=== PATIENT | female | born 1995 | race Caucasian/White ===

== ENCOUNTER 2021-07-27 16:37 | Emergency (ER) | payer OTHER ==
[2021-07-27] MEDS ORDERED: ACETAMINOPHEN 325 MG TAB PO ONE (17:54)
--- NOTE | 2021-07-27 17:55 | Emergency Department Report ---
ED HPI - General Chief complaint: Vaginal Bleeding Stated complaint: VAGINAL BLEEDING Time Seen by Provider: 07/27/21 17:08 Source: EMS Mode of arrival: Stretcher Limitations: Language Barrier - History of Present Illness Initial comments: 25 year female who is currently about 5 weeks based on her LMC which was 06/19/2021 presents to ED with complaints of vag bleeding. Onset 2hrs ago. She states bleeding is heaving than her normal MC. She has used 2 large pads so far. She also reports that she feels something large passed through the vagina while she was urinating in the ER. She states that she did not have a chance to look at it because of automatic flush. She states that when the pain initially started she did not have any abdominal pain/cramping, but since has been in the ER she started to have some mild lower abdominal cramping. She is Ab0. She does not currently have an [facility]. MD Complaint: vaginal bleeding -: hour(s) (2) - Related Data Allergies Allergy/AdvReac Type Severity Reaction Status Date / Time No Known Allergies Allergy Verified 07/27/21 16:40 ED Review of Systems ROS: Stated complaint: VAGINAL BLEEDING Other details as noted in HPI Comment: All other systems reviewed and negative Constitutional: denies: chills, fever Eyes: denies: eye pain, eye discharge, vision change ENT: denies: ear pain, throat pain Gastrointestinal: abdominal pain. denies: nausea, vomiting, diarrhea, constipation, hematemesis, melena, hematochezia Genitourinary: other (+; abnormal vag bleeding). denies: urgency, dysuria, frequency, hematuria, discharge, abnormal menses, dyspareunia Musculoskeletal: denies: back pain, joint swelling, arthralgia Skin: denies: rash, lesions, change in color, change in hair/nails, pruritus Neurological: denies: headache, weakness, numbness, paresthesias, confusion, abnormal gait, vertigo Psychiatric: denies: anxiety, depression, auditory hallucinations, visual hallucinations, homicidal thoughts, suicidal thoughts Hematological/Lymphatic: denies: easy bleeding, easy bruising, swollen glands ED Physical Exam - General Limitations: Language Barrier General appearance: alert, in no apparent distress - Neck Neck exam: Present: normal inspection, full ROM. Absent: meningismus - Respiratory Respiratory exam: Present: normal lung sounds bilaterally. Absent: respiratory distress, wheezes, rales, rhonchi - Cardiovascular Cardiovascular Exam: Present: regular rate - GI/Abdominal GI/Abdominal exam: Present: soft, tenderness (Mild ttp right LQ and suprapubic area without guarding ). Absent: distended, guarding, rebound, rigid - Neurological Exam Neurological exam: Present: alert, oriented X3, CN II-XII intact, normal gait - Psychiatric Psychiatric exam: Present: normal affect, normal mood - Skin Skin exam: Present: intact ED Course Vital Signs 07/27/21 16:37 Temperature 98 F Pulse Rate 71 Respiratory 18 Rate Blood Pressure 104/64 [Left] O2 Sat by Pulse 100 Oximetry ED Medical Decision Making - Lab Data Result diagrams: 07/27/21 18:02 07/27/21 18:02 - Radiology Data Radiology results: report reviewed Patient: KEARA SANTIAGO MR#: [id number] 60 : 1995 Acct:[id number] Age/Sex: 25 / F ADM Date: 07/27/21 Loc: ED Attending Dr: Ordering Physician: VEGA TRAYLOR Date of Service: 07/27/21 Procedure(s): US OB transvaginal Accession Number(s): [id number] cc: VEGA TRAYLOR EARLY OBSTETRICAL ULTRASOUND INDICATION: 5 weeks;vag bleeding COMPARISON: None pertinent available TECHNIQUE: Endovaginal FINDINGS: Early intrauterine is noted. Gestational sac is seen in the fundal endometrium with pole and yolk sac noted. Estimated gestational age by crown-rump length is 6 weeks 0 days. This recently corresponds to a 5 weeks 3 days estimated by clinical dating. Cardiac activity was documented with heart rate of 104 bpm. No implantational bleed is seen. No sac obvious abnormalities are noted. Right ovary shows a mildly complex 2.3 cm probable corpus luteum cyst. Left ovary shows no significant abnormalities. Flow is noted in both ovaries area in small amount of free fluid is seen in the pelvis. IMPRESSION: Normal-appearing early intrauterine at 6 weeks 0 days Signer Name: Gordon Rasmussen MD Signed: 07/27/2021 6:55 PM Workstation Name: [id number] Transcribed By: Dictated By: Gordon Rasmussen MD Electronically Authenticated By: Gordon Rasmussen MD Signed Date/Time: 07/27/211854 DD/ 51 TD/TT: - Medical Decision Making All labs reviewed show shows no significant abnormality[place] [address], and ED RH was A positive, therefore no indication for RhoGam at this time. Urinalysis does not suggest a UTI. OB ultrasound shows a single live IUP measuring at 6 weeks and 0 days. Patient resting comfortably. She is not in any significant distress. She has a nonsurgical abdomen on exam. She reports no worsening bleeding since she has been here. She is not toxic and she is not ill-appearing. She is neurologically intact. Her gait is normal. Discussed all lab results including ultrasound results with patient. She will be given referral information to [facility] for follow-up. She understands that if her symptoms worsens to return to the ER. Patient was stable at time of discharge. Critical care attestation.: If time is entered above; I have spent that time in minutes in the direct care of this critically ill patient, excluding procedure time. ED Disposition Clinical Impression: Threatened miscarriage Disposition: 01 HOME / SELF CARE / HOMELESS Is pt being admited?: No Does the pt Need Aspirin: No Condition: Stable Instructions: Threatened Miscarriage Additional Instructions: You can take Tylenol as needed to help with any abdominal cramping. I do recommend that you follow-up with a [facility], and since you do not have one, feel be listed for you in the discharge instructions. Recommend no strenuous sexual activity until follow-up with OB. You can start taking vitamins from [id number]. Return to the ER if anything changes or worsens in any way. Referrals: [facility] [Provider Group] - 3-5 Days [facility] [Provider Group] - 3-5 Days Time of Disposition: 19:50
--- NOTE | 2021-07-27 18:59 | Ultrasound Report ---
EARLY OBSTETRICAL ULTRASOUND INDICATION: 5 weeks;vag bleeding COMPARISON: None pertinent available TECHNIQUE: Endovaginal FINDINGS: Early intrauterine is noted. Gestational sac is seen in the fundal endometrium wi th pole and yolk sac noted. Estimated gestational age by crown-rump length is 6 weeks 0 days. T his recently corresponds to a 5 weeks 3 days estimated by clinical dating. Cardiac activity was docum ented with heart rate of 104 bpm. No implantational bleed is seen. No sac obvious abnormalities are noted. Right ovary shows a mildly complex 2.3 cm probable corpus luteum cyst. Left ovary shows no significan t abnormalities. Flow is noted in both ovaries area in small amount of free fluid is seen in the pelv is. IMPRESSION: Normal-appearing early intrauterine at 6 weeks 0 days Signer Name: Gordon Rasmussen MD Signed: 07/27/2021 6:55 PM Workstation Name: [id number]
[2021-07-27 19:03] LABS: Basophils % (Auto) 0.3 % (0.0-1.8); Eosinophils # (Auto) 0.2 K/mm3 (0.0-0.4); Eosinophils % (Auto) 2.5 % (0.0-4.3); Hematocrit 41.8 % (30.3-42.9); Hemoglobin 13.6 gm/dl (10.1-14.3); Lymphocytes # (Auto) 1.8 K/mm3 (1.2-5.4); Lymphocytes % (Auto) 22.2 % (13.4-35.0); Mean Corpuscular HGB Conc 33 % (30-34); Mean Corpuscular Volume 90 fl (79-97); Monocytes # (Auto) 0.7 K/mm3 (0.0-0.8); Platelet Count 229 K/mm3 (140-440); Red Blood Count 4.63 M/mm3 (3.65-5.03); Red Cell Distribution Width 12.9 % (13.2-15.2)
[2021-07-27 19:16] LABS: Bacteria,Urine 1+ /HPF (Negative)
[2021-07-27 19:25] LABS: Alanine Aminotransferase 15 units/L (7-56); Albumin 4.2 g/dL (3.9-5); Blood Urea Nitrogen 6 mg/dL (7-17); Calcium 9.1 mg/dL (8.4-10.2); Hemolysis Index 21
[2021-07-27 19:28] LABS: BUN/Creatinine Ratio 15
[2021-07-27 19:41] LABS: Bilirubin,Urine NEG (Negative); Blood,Urine LG (Negative); Color,Urine Colorless (Yellow); Protein,Urine <15 mg/dL mg/dL (Negative); Urobilinogen,Urine < 2.0 mg/dL (<2.0)
[2021-07-27 20:23] VITALS: BP 113/72
== END 2021-07-27 20:22 | disposition home or self-care (01) ==
LOC: ED 16:37
DX: O20.0 Threatened abortion (principal); Z3A.01 Less than 8 weeks gestation of pregnancy
CPT/HCPCS: 36415; 76817; 80053; 81001; 84702; 85025; 86900; 86901; 99284